=== PATIENT | female | born 1985 | race Caucasian/White ===

== ENCOUNTER 2017-04-20 12:53 | Emergency (ER) | payer BC ==
[2017-04-20] MEDS ORDERED: SODIUM CHLORIDE 0.9% 1,000 ML IV STA ×2 (13:29)
[2017-04-20] MEDS ORDERED: ONDANSETRON 4 MG/2 ML VIAL IVP STA ×2 (13:29→16:41)
[2017-04-20] MEDS ORDERED: SODIUM CHLORIDE 0.9% 500 ML IV STA (13:29)
--- NOTE | 2017-04-20 13:33 | ED ---
General Adult HPI - General Chief complaint: Nausea/Vomiting/Diarrhea Stated complaint: Vomiting Time Seen by Provider: 04/20/17 13:21 Source: patient, RN notes reviewed, old records reviewed Mode of arrival: ambulatory Limitations: no limitations - History of Present Illness Initial comments: This is a 31-year-old female to the ER for evaluation of dollop involvement with nausea vomiting. Severe. Patient has history of cholecystectomy. No other surgeries. No recent fevers or diarrhea. No blood in her vomit or stool. - Related Data Home Medications Medication Instructions Recorded Confirmed DULoxetine HCL [Cymbalta] 60 mg PO DAILY 04/20/17 04/20/17 Norgestimate-Ethinyl Estradiol 1 tab PO DAILY 04/20/17 04/20/17 [Sprintec 28 Day Tablet] Allergies Allergy/AdvReac Type Severity Reaction Status Date / Time No Known Allergies Allergy Verified 04/20/17 13:44 Review of Systems ROS Statement: Those systems with pertinent positive or pertinent negative responses have been documented in the HPI. ROS Other: All systems not noted in ROS Statement are negative. Past Medical History Past Medical History: No Reported History History of Any Multi-Drug Resistant Organisms: None Reported Past Surgical History: Cholecystectomy Past Psychological History: Anxiety Smoking Status: Never smoker Past Alcohol Use History: Occasional Past Drug Use History: None Reported General Exam Limitations: no limitations General appearance: alert, in no apparent distress, obese Head exam: Present: atraumatic, normocephalic, normal inspection Eye exam: Present: normal appearance, PERRL, EOMI. Absent: scleral icterus, conjunctival injection, periorbital swelling ENT exam: Present: normal exam, mucous membranes moist Neck exam: Present: normal inspection. Absent: tenderness, meningismus, lymphadenopathy Respiratory exam: Present: normal lung sounds bilaterally. Absent: respiratory distress, wheezes, rales, rhonchi, stridor Cardiovascular Exam: Present: regular rate, normal rhythm, normal heart sounds. Absent: systolic murmur, diastolic murmur, rubs, gallop, clicks GI/Abdominal exam: Present: soft, normal bowel sounds. Absent: distended, tenderness, guarding, rebound, rigid Extremities exam: Present: normal inspection, full ROM, normal capillary refill. Absent: tenderness, pedal edema, joint swelling, calf tenderness Back exam: Present: normal inspection Neurological exam: Present: alert, oriented X3, CN II-XII intact Psychiatric exam: Present: normal affect, normal mood Skin exam: Present: warm, dry, intact, normal color. Absent: rash Course Vital Signs 04/20/17 12:59 Temperature 96.9 F L Pulse Rate 124 H Respiratory 18 Rate Blood Pressure 138/87 O2 Sat by Pulse 98 Oximetry - Reevaluation(s) Reevaluation #1: 04/20/17 14:25 Patient's nausea improved but still feeling abdominal pain Medical Decision Making - Medical Decision Making 31 female here with nausea vomiting diarrhea abdominal pain. Symptoms of the sternal much improved. Labwork negative CT negative patient to be discharged - Lab Data Result diagrams: 04/20/17 13:28 04/20/17 13:28 Lab Results 04/20/17 04/20/17 04/20/17 Range/Units 13:28 13:28 13:28 WBC 9.5 (3.8-10.6) k/uL RBC 5.27 (3.80-5.40) m/uL Hgb 15.1 (11.4-16.0) gm/dL Hct 44.1 (34.0-46.0) % MCV 83.7 (80.0-100.0) fL MCH 28.7 (25.0-35.0) pg MCHC 34.2 (31.0-37.0) g/dL RDW 14.8 (11.5-15.5) % Plt Count 237 (150-450) k/uL Neutrophils % 93 % Lymphocytes % 4 % Monocytes % 2 % Eosinophils % 1 % Basophils % 0 % Neutrophils # 8.8 H (1.3-7.7) k/uL Lymphocytes # 0.4 L (1.0-4.8) k/uL Monocytes # 0.2 (0-1.0) k/uL Eosinophils # 0.1 (0-0.7) k/uL Basophils # 0.0 (0-0.2) k/uL Sodium 139 (137-145) mmol/L Potassium 4.8 (3.5-5.1) mmol/L Chloride 101 (98-107) mmol/L Carbon Dioxide 27 (22-30) mmol/L Anion Gap 11 mmol/L BUN 17 (7-17) mg/dL Creatinine 0.73 (0.52-1.04) mg/dL Est GFR (MDRD) Af Amer >60 (>60 ml/min/1.73 sqM) Est GFR (MDRD) Non-Af >60 (>60 ml/min/1.73 sqM) Glucose 140 H (74-99) mg/dL Calcium 9.8 (8.4-10.2) mg/dL Phosphorus 3.0 (2.5-4.5) mg/dL Magnesium 1.6 (1.6-2.3) mg/dL Total Bilirubin 0.5 (0.2-1.3) mg/dL AST 18 (14-36) U/L ALT 20 (9-52) U/L Alkaline Phosphatase 81 (38-126) U/L Total Protein 8.1 (6.3-8.2) g/dL Albumin 4.3 (3.5-5.0) g/dL Lipase 63 (23-300) U/L Urine Color Urine Appearance (Clear) Urine pH (5.0-8.0) Ur Specific [place] (1.001-1.035) Urine Protein (Negative) Urine Glucose (UA) (Negative) Urine Ketones (Negative) Urine Blood (Negative) Urine Nitrite (Negative) Urine Bilirubin (Negative) Urine Urobilinogen (<2.0) mg/dL Ur Leukocyte Esterase (Negative) Urine RBC (0-5) /hpf Urine WBC (0-5) /hpf Ur Squamous Epith Cells (0-4) /hpf Urine Bacteria (None) /hpf Urine Mucus (None) /hpf Urine HCG, Qual (Not Detectd) 04/20/17 04/20/17 Range/Units 14:00 14:00 WBC (3.8-10.6) k/uL RBC (3.80-5.40) m/uL Hgb (11.4-16.0) gm/dL Hct (34.0-46.0) % MCV (80.0-100.0) fL MCH (25.0-35.0) pg MCHC (31.0-37.0) g/dL RDW (11.5-15.5) % Plt Count (150-450) k/uL Neutrophils % % Lymphocytes % % Monocytes % % Eosinophils % % Basophils % % Neutrophils # (1.3-7.7) k/uL Lymphocytes # (1.0-4.8) k/uL Monocytes # (0-1.0) k/uL Eosinophils # (0-0.7) k/uL Basophils # (0-0.2) k/uL Sodium (137-145) mmol/L Potassium (3.5-5.1) mmol/L Chloride (98-107) mmol/L Carbon Dioxide (22-30) mmol/L Anion Gap mmol/L BUN (7-17) mg/dL Creatinine (0.52-1.04) mg/dL Est GFR (MDRD) Af Amer (>60 ml/min/1.73 sqM) Est GFR (MDRD) Non-Af (>60 ml/min/1.73 sqM) Glucose (74-99) mg/dL Calcium (8.4-10.2) mg/dL Phosphorus (2.5-4.5) mg/dL Magnesium (1.6-2.3) mg/dL Total Bilirubin (0.2-1.3) mg/dL AST (14-36) U/L ALT (9-52) U/L Alkaline Phosphatase (38-126) U/L Total Protein (6.3-8.2) g/dL Albumin (3.5-5.0) g/dL Lipase (23-300) U/L Urine Color Yellow Urine Appearance Cloudy H (Clear) Urine pH 6.0 (5.0-8.0) Ur Specific [place] 1.019 (1.001-1.035) Urine Protein Trace H (Negative) Urine Glucose (UA) Negative (Negative) Urine Ketones Negative (Negative) Urine Blood Negative (Negative) Urine Nitrite Negative (Negative) Urine Bilirubin Negative (Negative) Urine Urobilinogen <2.0 (<2.0) mg/dL Ur Leukocyte Esterase Trace H (Negative) Urine RBC 1 (0-5) /hpf Urine WBC 1 (0-5) /hpf Ur Squamous Epith Cells 4 (0-4) /hpf Urine Bacteria Rare H (None) /hpf Urine Mucus Occasional H (None) /hpf Urine HCG, Qual Not Detected (Not Detectd) - Radiology Data Radiology results: report reviewed (CT of pelvis is negative for acute disease) , image reviewed Disposition Clinical Impression: Food poisoning, Dehydration, Gastroenteritis Disposition: HOME SELF-CARE Condition: Good Instructions: Acute Nausea and Vomiting (ED), Acute Diarrhea (ED) Referrals: Sang Timmons MD [Primary Care Provider] - 1-2 days
[2017-04-20 13:45] LABS: Basophils % (A) 0 %; CH 28.3; Eosinophils # (A) 0.1 k/uL (0-0.7); Eosinophils % (A) 1 %; HCT 44.1 % (34.0-46.0); HDW 2.68; HGB 15.1 gm/dL (11.4-16.0); Luc # (Auto) 0.03; Luc % (Auto) 0; Lymphocytes # (A) 0.4 k/uL (1.0-4.8); Lymphocytes % (A) 4 %; MCH 28.7 pg (25.0-35.0); MCHC 34.2 g/dL (31.0-37.0); MCV 83.7 fL (80.0-100.0); Mean Platelet Volume 7.7; Monocytes # (A) 0.2 k/uL (0-1.0); Monocytes % (A) 2 %; Neutrophils # (A) 8.8 k/uL (1.3-7.7); Neutrophils % (A) 93 %; RBC 5.27 m/uL (3.80-5.40); RDW 14.8 % (11.5-15.5); WBC 9.5 k/uL (3.8-10.6); WBC (Perox) 9.43
[2017-04-20 13:57] LABS: ALT 20 U/L (9-52); AST 18 U/L (14-36); Alkaline Phosphatase 81 U/L (38-126); Anion Gap 11 mmol/L; Blood Urea Nitrogen 17 mg/dL (7-17); Calcium 9.8 mg/dL (8.4-10.2); Carbon Dioxide 27 mmol/L (22-30); Chloride 101 mmol/L (98-107); Glucose 140 mg/dL (74-99); Magnesium 1.6 mg/dL (1.6-2.3); Non-African American GFR(MDRD) >60 (>60 ml/min/1.73 sqM); Potassium 4.8 mmol/L (3.5-5.1); Sodium 139 mmol/L (137-145); Total Bilirubin 0.5 mg/dL (0.2-1.3); Total Protein 8.1 g/dL (6.3-8.2)
[2017-04-20 14:22] LABS: Appearance,Urine Cloudy (Clear); Bacteria,Urine Rare /hpf; Bilirubin,Urine Negative (Negative); Glucose,Urine (UA) Negative (Negative); Ketones,Urine Negative (Negative); Leukocyte Esterase,Urine Trace (Negative); Mucus,Urine Occasional /hpf; Nitrite,Urine Negative (Negative); Particle Count 4304; Protein,Urine Trace (Negative); RBC,Urine 1 /hpf (0-5); Specific Gravity,Urine 1.019 (1.001-1.035); Squamous Epithelial Cell,Urine 4 /hpf (0-4); UA Billing (MACRO vs. MICRO) MICRO; Urobilinogen,Urine <2.0 mg/dL (<2.0); WBC,Urine 1 /hpf (0-5)
[2017-04-20] MEDS ORDERED: MORPHINE SULFATE 2 MG/ML SYRINGE IVP STA ×2 (14:22→16:40)
[2017-04-20] MEDS ORDERED: RX INFO: IV CONTRAST WAS GIVEN 1 EACH MISC MISCELLANE PRN (14:22)
--- NOTE | 2017-04-20 15:48 | CT ---
EXAM: CT ABDOMEN PELVIS WITH CONTRAST INDICATION: Pain TECHNIQUE: Multiple, contiguous 5 mm axial cuts of the abdomen and pelvis are obtained from the lung bases to the ischial tuberosities. Intravenous contrast administered. Delayed images through the kidneys obtained. Sagittal and coronal reformatted images are available. This CT exam was performed using one or more of the following dose reduction techniques: automated exposure control, adjustment of the mA and/or kV according to patient size, and/or use of iterative reconstruction technique. CT DOSE: Total Exam volume computed tomography highest dose index (CTDIvol) = 17.4 mGy and total Dose Length Product (DLP) = 1384.2 mGY-cm COMPARISON: None FINDINGS: Lung bases are clear. Liver: liver is unremarkable. Spleen: spleen is unremarkable. Pancreas: pancreas is unremarkable. Gallbladder: Cholecystectomy. Adrenal glands: adrenal glands are unremarkable. Kidneys: kidneys are unremarkable. No urinary tract stones or hydronephrosis or perinephric inflammatory changes. GI tract: No bowel obstruction. No free fluid or free air or acute mesenteric inflammatory changes. Small hiatal hernia. Appendix: Appendix normal caliber. Urinary bladder: urinary bladder is unremarkable. Abdominal aorta: Abdominal aorta normal caliber. Retroperitoneum. No adenopathy. Osseous structures: No acute osseous abnormality. Uterus is present and unremarkable by CT exam. No adnexal lesions. IMPRESSION: 1. No acute intra-abdominal process identified. 2. No free fluid or free air or bowel obstruction. Appendix normal. 3. Small hiatal hernia. 4. Cholecystectomy.
[2017-04-20 16:52] VITALS: RESP 16
[2017-04-20] MEDS ORDERED: diphenhydrAMINE 50 MG/ML 1 ML VIAL IVP STA (17:30)
[2017-04-20] MEDS ORDERED: HYDROmorphone 0.5 MG/0.5 ML SYRINGE IVP STA (17:30)
[2017-04-20] MEDS ORDERED: METOCLOPRAMIDE 5 MG/ML 2 ML VIAL IVP STA (17:30)
[2017-04-20] MEDS ORDERED: PANTOPRAZOLE 40 MG/10 ML VIAL IVP STA (17:30)
[2017-04-20] MEDS ORDERED: HYDROmorphone 1 MG/ML 1 ML SYRINGE IVP STA (17:34)
[2017-04-20 18:16] VITALS: BP 122/71; PULSE 89; TEMP 98
== END 2017-04-20 18:15 | disposition home or self-care (01) ==
LOC: EC 12:53
DX: A05.9 Bacterial foodborne intoxication, unspecified (principal); E86.0 Dehydration; K52.9 Noninfective gastroenteritis and colitis, unspecified; F41.9 Anxiety disorder, unspecified; E66.9 Obesity, unspecified; Z68.38 Body mass index [BMI] 38.0-38.9, adult; Z90.49 Acquired absence of other specified parts of digestive tract; Z79.3 Long term (current) use of hormonal contraceptives; Z79.899 Other long term (current) drug therapy
CPT/HCPCS: 99284; 96374; 96375 ×5; 96376 ×2; 96361 ×4; 36415; 80053; 83690; 83735; 84100; 85025; 81001; 81025; 87086; 74177; J1200; J2765; J2405; J2270; J1170; Q9967; C9113

== ENCOUNTER 2019-05-16 15:31 | Emergency (ER) | payer BC ==
[2019-05-16 15:50] VITALS: TEMP 97.8
[2019-05-16] MEDS ORDERED: SODIUM CHLORIDE 0.9% 1,000 ML IV STA (16:16)
--- NOTE | 2019-05-16 16:18 | ED ---
Dizziness HPI - General Chief Complaint: Dizziness Stated Complaint: dizziness Time Seen by Provider: 05/16/19 15:53 Source: patient Mode of arrival: ambulatory Limitations: no limitations - History of Present Illness Initial Comments: Patient is a 33-year-old female presenting to emergency Department with complaints of dizziness for 3 days. Patient states 3 days ago she sat up from sleeping and had an episode where the room was spinning around her. Patient states she laid back down and rested for a few more minutes and the episode did pass. Patient states she got up slowly and she did not have any more episodes that day. Patient states since then she is experiencing lightheadedness and dizziness with certain motions. She states this is worse when she goes from a sitting to standing or when she turns her head too quickly. Patient denies history of vertigo or similar symptoms. Patient denies fever, chills, nausea, abdominal pain. Patient states she did have an episode of vomiting this morning. Patient states she just feels "off " and is concerned that the symptoms are lasting for this long. Denies at this time. Patient denies cough, chest pain, urinary complaints. Patient has no other complaints at this time. Upon arrival to the ER, patient was slightly tachycardia at 111, rest of vitals normal. - Related Data Home Medications Medication Instructions Recorded Confirmed DULoxetine HCL [Cymbalta] 60 mg PO DAILY 04/20/17 04/20/17 Norgestimate-Ethinyl Estradiol 1 tab PO DAILY 04/20/17 04/20/17 [Sprintec 28 Day Tablet] Previous Rx's Medication Instructions Recorded Prochlorperazine [Compazine] 10 mg PO Q8H #30 tab 04/20/17 Meclizine [Antivert] 25 mg PO BID PRN 15 Days #30 tab 05/16/19 Allergies Allergy/AdvReac Type Severity Reaction Status Date / Time No Known Allergies Allergy Verified 05/16/19 15:49 Review of Systems ROS Statement: Those systems with pertinent positive or pertinent negative responses have been documented in the HPI. ROS Other: All systems not noted in ROS Statement are negative. Past Medical History Past Medical History: No Reported History History of Any Multi-Drug Resistant Organisms: None Reported Past Surgical History: Cholecystectomy Past Psychological History: Anxiety Smoking Status: Never smoker Past Alcohol Use History: Occasional Past Drug Use History: None Reported General Exam - General Exam Comments Initial Comments: GENERAL: Well-appearing, well-nourished and in no acute distress. HEAD: Atraumatic, normocephalic. EYES: Pupils equal round and reactive to light, extraocular movements intact, sclera anicteric, conjunctiva are normal. ENT: TMs normal, nares patent, oropharynx clear without exudates. Moist mucous membranes. NECK: Normal range of motion, supple without lymphadenopathy or JVD. LUNGS: Breath sounds clear to auscultation bilaterally and equal. No wheezes rales or rhonchi. HEART: Regular rate and rhythm without murmurs, rubs or gallops. ABDOMEN: Soft, nontender, normoactive bowel sounds. No guarding, no rebound. No masses appreciated. : Deferred EXTREMITIES: Normal range of motion, no pitting or edema. No clubbing or cyanosis. NEUROLOGICAL: Cranial nerves II through XII grossly intact. Normal speech, normal gait. PSYCH: Normal mood, normal affect. SKIN: Warm, Dry, normal turgor, no rashes or lesions noted. Limitations: no limitations Course Vital Signs 05/16/19 05/16/19 15:49 18:49 Temperature 97.8 F Pulse Rate 115 H 97 Respiratory 18 16 Rate Blood Pressure 117/83 126/88 O2 Sat by Pulse 98 100 Oximetry EKG Findings - EKG Comments: EKG Findings:: Ventricular rate 85, W[place] interval 160, QTC 442. Normal sinus rhythm. No acute ST segment changes. Normal ECG. Medical Decision Making - Medical Decision Making Patient is a 33-year-old female presenting with vertigo-type symptoms for 3 days. Patient's exam is unremarkable. EKG is normal. Lab work is unremarkable. UA is normal and no signs of infection. HCG is negative. Pat ient was given fluids as well as meclizine and Benadryl. Patient reports improvement in her symptoms. I discussed these findings with the patient. I discussed that this could be vertigo. Patient will continue with the meclizine as needed and will follow-up with her PCP. Patient's vital signs are normal upon DC. Patient is agreeable with this plan of care. Return parameters were discussed with the patient and she verbalized understanding. Case discussed with Dr. Muniz. - Lab Data Result diagrams: 05/16/19 17:34 05/16/19 17:34 Lab Results 05/16/19 05/16/19 05/16/19 Range/Units 17:11 17:11 17:34 WBC 5.5 (3.8-10.6) k/uL RBC 4.82 (3.80-5.40) m/uL Hgb 14.1 (11.4-16.0) gm/dL Hct 41.5 (34.0-46.0) % MCV 86.1 (80.0-100.0) fL MCH 29.3 (25.0-35.0) pg MCHC 34.0 (31.0-37.0) g/dL RDW 13.3 (11.5-15.5) % Plt Count 177 (150-450) k/uL Neutrophils % 84 % Lymphocytes % 10 % Monocytes % 3 % Eosinophils % 1 % Basophils % 0 % Neutrophils # 4.7 (1.3-7.7) k/uL Lymphocytes # 0.6 L (1.0-4.8) k/uL Monocytes # 0.2 (0-1.0) k/uL Eosinophils # 0.1 (0-0.7) k/uL Basophils # 0.0 (0-0.2) k/uL Sodium (137-145) mmol/L Potassium (3.5-5.1) mmol/L Chloride (98-107) mmol/L Carbon Dioxide (22-30) mmol/L Anion Gap mmol/L BUN (7-17) mg/dL Creatinine (0.52-1.04) mg/dL Est GFR (CKD-EPI)AfAm (>60 ml/min/1.73 sqM) Est GFR (CKD-EPI)NonAf (>60 ml/min/1.73 sqM) Glucose (74-99) mg/dL Calcium (8.4-10.2) mg/dL Total Bilirubin (0.2-1.3) mg/dL AST (14-36) U/L ALT (4-34) U/L Alkaline Phosphatase (38-126) U/L Total Protein (6.3-8.2) g/dL Albumin (3.5-5.0) g/dL Urine Color Yellow Urine Appearance Cloudy H (Clear) Urine pH 6.0 (5.0-8.0) Ur Specific [place] 1.023 (1.001-1.035) Urine Protein Negative (Negative) Urine Glucose (UA) Negative (Negative) Urine Ketones Negative (Negative) Urine Blood Moderate H (Negative) Urine Nitrite Negative (Negative) Urine Bilirubin Negative (Negative) Urine Urobilinogen <2.0 (<2.0) mg/dL Ur Leukocyte Esterase Large H (Negative) Urine RBC 2 (0-5) /hpf Urine WBC 10 H (0-5) /hpf Ur Squamous Epith Cells 13 H (0-4) /hpf Urine Bacteria Occasional H (None) /hpf Urine Mucus Moderate H (None) /hpf Urine HCG, Qual Not Detected (Not Detectd) 05/16/19 Range/Units 17:34 WBC (3.8-10.6) k/uL RBC (3.80-5.40) m/uL Hgb (11.4-16.0) gm/dL Hct (34.0-46.0) % MCV (80.0-100.0) fL MCH (25.0-35.0) pg MCHC (31.0-37.0) g/dL RDW (11.5-15.5) % Plt Count (150-450) k/uL Neutrophils % % Lymphocytes % % Monocytes % % Eosinophils % % Basophils % % Neutrophils # (1.3-7.7) k/uL Lymphocytes # (1.0-4.8) k/uL Monocytes # (0-1.0) k/uL Eosinophils # (0-0.7) k/uL Basophils # (0-0.2) k/uL Sodium 136 L (137-145) mmol/L Potassium 4.1 (3.5-5.1) mmol/L Chloride 104 (98-107) mmol/L Carbon Dioxide 24 (22-30) mmol/L Anion Gap 8 mmol/L BUN 13 (7-17) mg/dL Creatinine 0.69 (0.52-1.04) mg/dL Est GFR (CKD-EPI)AfAm >90 (>60 ml/min/1.73 sqM) Est GFR (CKD-EPI)NonAf >90 (>60 ml/min/1.73 sqM) Glucose 101 H (74-99) mg/dL Calcium 8.9 (8.4-10.2) mg/dL Total Bilirubin 0.5 (0.2-1.3) mg/dL AST 20 (14-36) U/L ALT 11 (4-34) U/L Alkaline Phosphatase 74 (38-126) U/L Total Protein 7.0 (6.3-8.2) g/dL Albumin 3.8 (3.5-5.0) g/dL Urine Color Urine Appearance (Clear) Urine pH (5.0-8.0) Ur Specific [place] (1.001-1.035) Urine Protein (Negative) Urine Glucose (UA) (Negative) Urine Ketones (Negative) Urine Blood (Negative) Urine Nitrite (Negative) Urine Bilirubin (Negative) Urine Urobilinogen (<2.0) mg/dL Ur Leukocyte Esterase (Negative) Urine RBC (0-5) /hpf Urine WBC (0-5) /hpf Ur Squamous Epith Cells (0-4) /hpf Urine Bacteria (None) /hpf Urine Mucus (None) /hpf Urine HCG, Qual (Not Detectd) Disposition Clinical Impression: Vertigo, Light headedness Disposition: HOME SELF-CARE Condition: Stable Instructions (If sedation given, give patient instructions): Vertigo (ED) Additional Instructions: Please return to the Emergency Department if symptoms worsen or any other concerns. Follow-up with PCP as discussed, in 1- 3 days. Trial of meclizine for symptoms. Patient may also try Benadryl. Prescriptions: Meclizine [Antivert] 25 mg PO BID PRN 15 Days #30 tab PRN Reason: Vertigo Is patient prescribed a controlled substance at d/c from ED?: No Referrals: Sang Timmons MD [Primary Care Provider] - 1-2 days
[2019-05-16 17:52] LABS: Appearance,Urine Cloudy (Clear); Bacteria,Urine Occasional /hpf; Bilirubin,Urine Negative (Negative); Blood,Urine Moderate (Negative); Color,Urine Yellow; Glucose,Urine (UA) Negative (Negative); Ketones,Urine Negative (Negative); Leukocyte Esterase,Urine Large (Negative); Mucus,Urine Moderate /hpf; Nitrite,Urine Negative (Negative); Protein,Urine Negative (Negative); RBC,Urine 2 /hpf (0-5); Specific Gravity,Urine 1.023 (1.001-1.035); Squamous Epithelial Cell,Urine 13 /hpf (0-4); Urobilinogen,Urine <2.0 mg/dL (<2.0); WBC,Urine 10 /hpf (0-5)
[2019-05-16 17:57] LABS: Basophils % (A) 0 %; Eosinophils # (A) 0.1 k/uL (0-0.7); Eosinophils % (A) 1 %; HCT 41.5 % (34.0-46.0); HGB 14.1 gm/dL (11.4-16.0); Lymphocytes # (A) 0.6 k/uL (1.0-4.8); Lymphocytes % (A) 10 %; MCH 29.3 pg (25.0-35.0); MCV 86.1 fL (80.0-100.0); Mean Platelet Volume 7.8; Monocytes # (A) 0.2 k/uL (0-1.0); Monocytes % (A) 3 %; Neutrophils # (A) 4.7 k/uL (1.3-7.7); Neutrophils % (A) 84 %; Platelet Count 177 k/uL (150-450); RBC 4.82 m/uL (3.80-5.40); RDW 13.3 % (11.5-15.5); WBC 5.5 k/uL (3.8-10.6)
[2019-05-16 18:07] LABS: ALT 11 U/L (4-34); AST 20 U/L (14-36); African American GFR (CKD) >90 (>60 ml/min/1.73 sqM); Albumin 3.8 g/dL (3.5-5.0); Alkaline Phosphatase 74 U/L (38-126); Anion Gap 8 mmol/L; Blood Urea Nitrogen 13 mg/dL (7-17); Calcium 8.9 mg/dL (8.4-10.2); Carbon Dioxide 24 mmol/L (22-30); Chloride 104 mmol/L (98-107); Glucose 101 mg/dL (74-99); Non-African American GFR(CKD) >90 (>60 ml/min/1.73 sqM); Potassium 4.1 mmol/L (3.5-5.1); Sodium 136 mmol/L (137-145); Total Bilirubin 0.5 mg/dL (0.2-1.3)
[2019-05-16] MEDS ORDERED: MECLIZINE 12.5 MG TAB PO STA (18:17)
[2019-05-16] MEDS ORDERED: diphenhydrAMINE 50 MG/ML 1 ML VIAL IVP STA (18:17)
[2019-05-16 18:50] VITALS: BP 126/88; PULSE 97; RESP 16
== END 2019-05-16 18:54 | disposition home or self-care (01) ==
LOC: EC 15:31
DX: R42 Dizziness and giddiness (principal); F41.9 Anxiety disorder, unspecified; Z79.3 Long term (current) use of hormonal contraceptives; Z79.899 Other long term (current) drug therapy
CPT/HCPCS: 36415; 93005; 80053; 85025; 81001; 81025; 99284; 96374; 96361 ×2; J1200

== ENCOUNTER 2020-01-16 10:27 | Emergency (ER) | payer BC ==
[2020-01-16 10:34] VITALS: RESP 18
[2020-01-16] MEDS ORDERED: DEXAMETHASONE SOD PHOSPHATE 10 MG/ML 1 ML VIAL PO STA (10:47)
--- NOTE | 2020-01-16 10:50 | ED ---
ENT HPI - General Chief complaint: ENT Stated complaint: sorethroat Time Seen by Provider: 01/16/20 10:36 Source: patient, RN notes reviewed Mode of arrival: ambulatory Limitations: no limitations - History of Present Illness Initial comments: 34-year-old female presents emergency Department with chief complaint of sore throat, sinus congestion patient states symptoms have been going on for last 4 days. Patient states is getting worse. Patient has tried everything [id number] no relief no fevers or chills no bodyaches no loss of smell. Patient denies any significant past history no sick contacts. - Related Data Home Medications Medication Instructions Recorded Confirmed DULoxetine HCL [Cymbalta] 60 mg PO DAILY 04/20/17 04/20/17 Norgestimate-Ethinyl Estradiol 1 tab PO DAILY 04/20/17 04/20/17 [Sprintec 28 Day Tablet] Previous Rx's Medication Instructions Recorded Prochlorperazine [Compazine] 10 mg PO Q8H #30 tab 04/20/17 Meclizine [Antivert] 25 mg PO BID PRN 15 Days #30 tab 05/16/19 Azithromycin [Zithromax Z-pack] 0 mg PO DIRECTED #1 pack 01/16/20 Allergies Allergy/AdvReac Type Severity Reaction Status Date / Time No Known Allergies Allergy Verified 01/16/20 10:29 Review of Systems ROS Statement: Those systems with pertinent positive or pertinent negative responses have been documented in the HPI. ROS Other: All systems not noted in ROS Statement are negative. Past Medical History Past Medical History: No Reported History History of Any Multi-Drug Resistant Organisms: None Reported Past Surgical History: Cholecystectomy Past Psychological History: Anxiety Smoking Status: Never smoker Past Alcohol Use History: Occasional Past Drug Use History: None Reported General Exam Limitations: no limitations General appearance: alert, in no apparent distress Head exam: Present: atraumatic, normocephalic, normal inspection Eye exam: Present: normal appearance, PERRL, EOMI. Absent: scleral icterus, conjunctival injection, periorbital swelling ENT exam: Present: mucous membranes moist, TM's normal bilaterally, normal external ear exam. Absent: normal oropharynx (Postnasal drainage, erythema no edematous tonsils no exudates) Neck exam: Present: normal inspection, full ROM, lymphadenopathy. Absent: tenderness, meningismus Respiratory exam: Present: normal lung sounds bilaterally. Absent: respiratory distress, wheezes, rales, rhonchi, stridor Cardiovascular Exam: Present: regular rate, normal rhythm, normal heart sounds. Absent: systolic murmur, diastolic murmur, rubs, gallop, clicks Course Vital Signs 01/16/20 10:30 Temperature 98.3 F Pulse Rate 114 H Respiratory 18 Rate Blood Pressure 118/77 O2 Sat by Pulse 96 Oximetry Medical Decision Making - Medical Decision Making Patient's will be treated for acute pharyngitis, laryngitis with possible underlying sinusitis. Patient had recently ENT evaluation Disposition Clinical Impression: Acute pharyngitis, Acute laryngitis, Sinusitis Disposition: HOME SELF-CARE Condition: Stable Instructions (If sedation given, give patient instructions): Pharyngitis (ED) Additional Instructions: Please return to the Emergency Department if symptoms worsen or any other concerns. Prescriptions: Azithromycin [Zithromax Z-pack] 0 mg PO DIRECTED #1 pack Is patient prescribed a controlled substance at d/c from ED?: No Referrals: Nonstaff,Physician [Primary Care Provider] - 1-2 days Time of Disposition: 10:50
[2020-01-16 11:31] VITALS: BP 120/70; PULSE 92; TEMP 98
== END 2020-01-16 11:29 | disposition home or self-care (01) ==
LOC: EC 10:27
DX: J02.9 Acute pharyngitis, unspecified (principal); J04.0 Acute laryngitis; J32.9 Chronic sinusitis, unspecified; F41.9 Anxiety disorder, unspecified; Z79.899 Other long term (current) drug therapy; Z79.3 Long term (current) use of hormonal contraceptives
CPT/HCPCS: 99282; J1100

== ENCOUNTER → 2020-01-21 | Outpatient (CLI) | payer BC ==
--- NOTE | 2020-01-21 15:19 | CT ---
EXAMINATION TYPE: CT sinus wo con DATE OF EXAM: 01/21/2020 COMPARISON: None HISTORY: Acute sinusitis. Pt c/o drainage, maxillary, frontal pain. Is on third round of antibiotics CT DLP: 465.[address] of the paranasal sinuses was performed in the axial and coronal planes. Bone and soft tissue settings are submitted. The paranasal sinuses demonstrate normal aeration and development. Moderate mucosal thickening involving the ethmoid air cells and maxillary sinuses. Minimal mucosal th ickening of the frontal sinus. Near complete opacification the sphenoid sinus. The osteal meatal units are patent bilaterally. The nasal septum is midline. No bony destructive changes are seen within the field of view. IMPRESSION: Pansinusitis noted.
== END | disposition home or self-care (01) ==
LOC: RADCTMAIN 14:28
PROVIDERS: ATTEND Otolaryngology Otolaryngology/Facial Plastic Surgery
DX: J32.4 Chronic pansinusitis (principal)
CPT/HCPCS: 70486

== ENCOUNTER → 2020-09-22 | Outpatient (CLI) | payer BC ==
--- NOTE | 2020-09-23 10:39 | MM ---
Reason for exam: screening (asymptomatic). Baseline mammogram. History: Family history of breast cancer in mother at age 40 and breast cancer in sister at age 27. Taking hormonal contraceptives beginning at age 16. Physical Findings: Nurse did not find any significant physical abnormalities on exam. MG 3D Screening Mammo W/Cad Bilateral CC, MLO, and XCCL view(s) were taken. The breast tissue is heterogeneously dense. This may lower the sensitivity of mammography. Finding: There is subtle architectural distortion in the upper outer quadrant, posterior position of the left breast. Nodularity right axilla. These results were verbally communicated with the patient and result sheet given to the patient on 09/22/20. ASSESSMENT: Incomplete: need additional imaging evaluation, BI-RAD 0 RECOMMENDATION: Ultrasound of both breasts.
--- NOTE | 2020-09-23 10:41 | USB ---
Reason for exam: additional evaluation requested from abnormal screening. History: Family history of breast cancer in mother at age 40 and breast cancer in sister at age 27. Taking hormonal contraceptives beginning at age 16. US Breast Workup Limited AL Right limited breast ultrasound including focal area of concern, retroareolar and axilla demonstrates a 0.7cm oval lymph node at the axilla tail. Left limited breast ultrasound including focal area of concern, retroareolar and axilla demonstrates a 0.4 x 0.2 x 0.2cm oval, cystic lesion at 2 o'clock and a 0.7cm oval lymph node at the axilla tail. Benign lymph nodes. These results were verbally communicated with the patient and result sheet given to the patient on 09/22/20. ASSESSMENT: Benign, BI-RAD 2 RECOMMENDATION: Routine screening mammogram of both breasts at age 40.
== END | disposition home or self-care (01) ==
LOC: RADMAMWWP 09:19
PROVIDERS: ATTEND Obstetrics & Gynecology
DX: Z12.31 Encounter for screening mammogram for malignant neoplasm of breast (principal); N60.02 Solitary cyst of left breast; R92.8 Other abnormal and inconclusive findings on diagnostic imaging of breast; Z80.3 Family history of malignant neoplasm of breast
CPT/HCPCS: 77063; 77067

== ENCOUNTER → 2022-10-18 | Outpatient (CLI) | payer BC ==
[2022-10-19 02:19] LABS: HCT 39.6 % (37.2-46.3); HGB 12.5 g/dL (12.0-15.0); MCH 28.6 pg (27.0-32.0); MCHC 31.6 g/dL (32.0-37.0); MCV 90.6 fL (80.0-97.0); Mean Platelet Volume 10.9 fL (9.5-12.2); NRBC Per 100 WBC 0 /100 WBCS (0.0-0.0); Platelet Count 278 X 10*3/uL (140-440); RBC 4.37 X 10*6/uL (4.10-5.20); RDW 13.7 % (11.5-14.5); WBC 5.67 X 10*3/uL (4.50-10.00)
[2022-10-19 03:01] LABS: ALT 12 U/L (8-44); AST 13 U/L (13-35); African American GFR (CKD) 128.9 (60.0-200.0); Albumin 3.9 g/dL (3.8-4.9); Albumin/Globulin Ratio 1.46 (1.60-3.17); Alkaline Phosphatase 71 U/L (41-126); BUN/Creat Ratio 21.01 Ratio (12.00-20.00); Blood Urea Nitrogen 14.5 mg/dL (9.0-27.0); Calcium 9.5 mg/dL (8.7-10.3); Carbon Dioxide 24.2 mmol/L (20.0-27.5); Chloride 102 mmol/L (96-109); Chol/HDL Ratio 3.89 Ratio; Globulin 2.7 g/dL (1.6-3.3); Glucose 114 mg/dL (70-110); LDL Cholesterol,Calculated 118.7 mg/dL (0.0-131.0); Non-African American GFR(CKD) 111.2 (60.0-200.0); Potassium 4.4 mmol/L (3.5-5.5); Sodium 137 mmol/L (135-145); Total Bilirubin <0.15 mg/dL (0.30-1.20); Total Protein 6.5 g/dL (6.2-8.2)
== END | disposition home or self-care (01) ==
LOC: LABWHC1 06:51
PROVIDERS: ATTEND Family Medicine
DX: Z00.00 Encounter for general adult medical examination without abnormal findings (principal)
CPT/HCPCS: 36415; 80053; 80061; 84443; 85027

== ENCOUNTER → 2023-09-25 | Outpatient (CLI) | payer BC ==
--- NOTE | 2023-09-25 14:35 | MM ---
Reason for Exam: Screening (asymptomatic). Last mammogram was performed 3 year(s) and 0 month(s) ago. Patient History: Menarche at age 13. First Full-Term at age 24. Premenopausal. Currently using Hormonal Contraceptives, starting at age 16. Sister had breast cancer, age 27. Mother had breast cancer, age 40. Last menstrual period: 09/02/2023 Risk Values: Kristina 5 year model risk: 1.9%. NCI Lifetime model risk: 35.2%. Prior Study Comparison: 09/22/2020 Bilateral Screening Mammogram, [facility]. Tissue Density: The breasts are heterogeneously dense, which may obscure small masses. Findings: Analyzed By CAD. Unchanged intramammary lymph node lateral right breast. Scattered areas of asymmetric density remain unchanged. No significant change from prior exams. Overall Assessment: Benign, BI-RAD 2 Management: Screening Mammogram of both breasts in 1 year. SEE NOTE BELOW IN REGARDS TO PATIENT'S INCREASED LIFETIME RISK SCORE. Patient should continue monthly self-breast exams. A clinical breast exam by your physician is recommended on an annual basis. This exam should not preclude additional follow-up of suspicious palpable abnormalities. Note on Kristina scores and lifetime risk: 1. A Kristina score greater than 3% is considered moderate risk. If this is the case, consider specialist referral to assess eligibility for a risk reducing agent. 2. If overall lifetime risk for the development of breast cancer is 20% or higher, the patient may qualify for future screening with alternating mammogram and breast MRI. Electronically signed and approved by: Chrissie Spence M.D. Radiologist
== END | disposition home or self-care (01) ==
LOC: RADMAMWWP 12:48
PROVIDERS: ATTEND Obstetrics & Gynecology
DX: Z12.31 Encounter for screening mammogram for malignant neoplasm of breast (principal); Z80.3 Family history of malignant neoplasm of breast
CPT/HCPCS: 77063; 77067

== ENCOUNTER → 2024-02-03 | Outpatient (CLI) | payer BC ==
[2024-02-03 10:30] LABS: Basophils # (A) 0.04 X 10*3/uL (0.00-0.10); Basophils % (A) 0.7 %; Eosinophils # (A) 0.04 X 10*3/uL (0.04-0.35); Eosinophils % (A) 0.7 %; HCT 39.1 % (37.2-46.3); Lymphocytes # (A) 2.13 X 10*3/uL (0.90-5.00); Lymphocytes % (A) 35.5 %; MCH 28.8 pg (27.0-32.0); MCHC 33.2 g/dL (32.0-37.0); MCV 86.7 FL (80.0-97.0); Mean Platelet Volume 10.9 FL (9.5-12.2); Monocytes # (A) 0.39 X 10*3/uL (0.20-1.00); Monocytes % (A) 6.5 %; NRBC Per 100 WBC 0 X 10*3/uL (0.00-0.01); Neutrophils # (A) 3.39 X 10*3/uL (1.80-7.70); Neutrophils % (A) 56.4 %; Platelet Count 286 X 10*3/uL (140-440); RBC 4.51 X 10*6/uL (4.10-5.20); RDW 13.2 % (11.5-14.5)
[2024-02-03 10:41] LABS: ALT 12 U/L (8-44); AST 12 U/L (13-35); Albumin 4.2 g/dL (3.8-4.9); Albumin/Globulin Ratio 1.45 Ratio (1.60-3.17); Alkaline Phosphatase 79 U/L (41-126); BUN/Creat Ratio 18.75 Ratio (12.00-20.00); Calcium 9.5 mg/dL (8.7-10.3); Carbon Dioxide 24.4 mmol/L (21.6-31.8); Chloride 100 mmol/L (96-109); Chol/HDL Ratio 4.56 Ratio; Globulin 2.9 g/dL (1.6-3.3); Glucose 131 mg/dL (70-110); LDL Cholesterol,Calculated 138.6 mg/dL (0.0-131.0); Potassium 4.3 mmol/L (3.5-5.5); Sodium 137 mmol/L (135-145); Total Bilirubin 0.2 mg/dL (0.3-1.2); Total Protein 7.1 g/dL (6.2-8.2)
== END | disposition home or self-care (01) ==
LOC: LABWHC1 07:52
PROVIDERS: ATTEND Family Medicine
DX: Z00.00 Encounter for general adult medical examination without abnormal findings
CPT/HCPCS: 36415; 80053; 80061; 83036; 84443; 85025

== ENCOUNTER → 2024-05-27 | Outpatient (CLI) | payer BC ==
[2024-05-27 11:02] LABS: HCT 39.8 % (37.2-46.3); HGB 12.9 g/dL (12.0-15.0); MCH 27.8 pg (27.0-32.0); MCHC 32.4 g/dL (32.0-37.0); MCV 85.8 FL (80.0-97.0); Mean Platelet Volume 10.8 FL (9.5-12.2); NRBC Per 100 WBC 0 X 10*3/uL (0.00-0.01); Platelet Count 322 X 10*3/uL (140-440); RBC 4.64 X 10*6/uL (4.10-5.20); RDW 13.2 % (11.5-14.5); WBC 8.71 X 10*3/uL (4.50-10.00)
[2024-05-27 11:03] LABS: Basophils # (A) 0.05 X 10*3/uL (0.00-0.10); Basophils % (A) 0.6 %; Eosinophils # (A) 0.07 X 10*3/uL (0.04-0.35); Eosinophils % (A) 0.8 %; Lymphocytes # (A) 2.67 X 10*3/uL (0.90-5.00); Lymphocytes % (A) 30.7 %; Monocytes # (A) 0.48 X 10*3/uL (0.20-1.00); Monocytes % (A) 5.5 %; Neutrophils # (A) 5.41 X 10*3/uL (1.80-7.70); Neutrophils % (A) 62.1 %
[2024-05-27 11:28] LABS: ALT 11 U/L (8-44); AST 16 U/L (13-35); Albumin/Globulin Ratio 1.33 Ratio (1.60-3.17); Alkaline Phosphatase 79 U/L (41-126); BUN/Creat Ratio 16.75 Ratio (12.00-20.00); Blood Urea Nitrogen 13.4 mg/dL (9.0-27.0); Calcium 9.6 mg/dL (8.7-10.3); Carbon Dioxide 22.5 mmol/L (21.6-31.8); Chloride 101 mmol/L (96-109); Chol/HDL Ratio 4.51 Ratio; Glucose 123 mg/dL (70-110); LDL Cholesterol,Calculated 111.9 mg/dL (0.0-131.0); Potassium 4.2 mmol/L (3.5-5.5); Sodium 137 mmol/L (135-145); Total Bilirubin 0.2 mg/dL (0.3-1.2)
== END | disposition home or self-care (01) ==
LOC: LABWHC1 06:52
PROVIDERS: ATTEND Family Medicine
DX: I10 Essential (primary) hypertension (principal); E78.2 Mixed hyperlipidemia; E55.9 Vitamin D deficiency, unspecified; R53.83 Other fatigue; R79.9 Abnormal finding of blood chemistry, unspecified
CPT/HCPCS: 36415; 80053; 80061; 82043; 82306; 82570; 82607; 82746; 83036; 85025

== ENCOUNTER → 2024-08-24 | Outpatient (CLI) | payer BC ==
[2024-08-24 10:21] LABS: Basophils # (A) 0.06 X 10*3/uL (0.00-0.10); Basophils % (A) 0.7 %; Eosinophils # (A) 0.08 X 10*3/uL (0.04-0.35); HCT 37.7 % (37.2-46.3); HGB 12.5 g/dL (12.0-15.0); Lymphocytes # (A) 1.97 X 10*3/uL (0.90-5.00); Lymphocytes % (A) 23.9 %; MCH 28.1 pg (27.0-32.0); MCHC 33.2 g/dL (32.0-37.0); MCV 84.7 FL (80.0-97.0); Mean Platelet Volume 10.6 FL (9.5-12.2); Monocytes # (A) 0.47 X 10*3/uL (0.20-1.00); Monocytes % (A) 5.7 %; NRBC Per 100 WBC 0 X 10*3/uL (0.00-0.01); Neutrophils # (A) 5.63 X 10*3/uL (1.80-7.70); Neutrophils % (A) 68.3 %; Platelet Count 318 X 10*3/uL (140-440); RBC 4.45 X 10*6/uL (4.10-5.20); RDW 13.6 % (11.5-14.5); WBC 8.24 X 10*3/uL (4.50-10.00)
[2024-08-24 10:52] LABS: ALT 14 U/L (8-44); AST 17 U/L (13-35); Albumin 3.8 g/dL (3.8-4.9); Albumin/Globulin Ratio 1.31 Ratio (1.60-3.17); Alkaline Phosphatase 86 U/L (41-126); BUN/Creat Ratio 15.88 Ratio (12.00-20.00); Blood Urea Nitrogen 12.7 mg/dL (9.0-27.0); Calcium 9.4 mg/dL (8.7-10.3); Carbon Dioxide 23.3 mmol/L (21.6-31.8); Chloride 104 mmol/L (96-109); Chol/HDL Ratio 3.84 Ratio; Globulin 2.9 g/dL (1.6-3.3); Glucose 135 mg/dL (70-110); LDL Cholesterol,Calculated 99.8 mg/dL (0.0-131.0); Potassium 4.1 mmol/L (3.5-5.5); Sodium 138 mmol/L (135-145); Total Bilirubin <0.2 mg/dL (0.3-1.2); Total Protein 6.7 g/dL (6.2-8.2)
== END | disposition home or self-care (01) ==
LOC: LABWHC1 07:12
PROVIDERS: ATTEND Family Medicine
DX: I10 Essential (primary) hypertension (principal); E78.2 Mixed hyperlipidemia; E55.9 Vitamin D deficiency, unspecified; R53.83 Other fatigue
CPT/HCPCS: 36415; 80053; 80061; 82306; 82607; 82746; 83036; 85025

== ENCOUNTER → 2024-11-25 | Outpatient (CLI) | payer BC ==
[2024-11-25 10:29] LABS: Basophils # (A) 0.05 X 10*3/uL (0.00-0.10); Basophils % (A) 0.8 %; Eosinophils # (A) 0.07 X 10*3/uL (0.04-0.35); Eosinophils % (A) 1.1 %; HCT 39.2 % (37.2-46.3); HGB 12.9 g/dL (12.0-15.0); Immature Grans, Automated 0.20 %; Lymphocytes # (A) 2.61 X 10*3/uL (0.90-5.00); Lymphocytes % (A) 40.0 %; MCH 27.9 pg (27.0-32.0); MCHC 32.9 g/dL (32.0-37.0); MCV 84.8 FL (80.0-97.0); Monocytes # (A) 0.47 X 10*3/uL (0.20-1.00); Monocytes % (A) 7.2 %; NRBC Per 100 WBC 0 X 10*3/uL (0.00-0.01); Neutrophils # (A) 3.31 X 10*3/uL (1.80-7.70); Neutrophils % (A) 50.7 %; Platelet Count 317 X 10*3/uL (140-440); RBC 4.62 X 10*6/uL (4.10-5.20); RDW 14.1 % (11.5-14.5); WBC 6.52 X 10*3/uL (4.50-10.00)
[2024-11-25 10:48] LABS: ALT 11 U/L (8-44); AST 15 U/L (13-35); Albumin 4.0 g/dL (3.8-4.9); Albumin/Globulin Ratio 1.43 Ratio (1.60-3.17); Alkaline Phosphatase 82 U/L (41-126); Anion Gap 10.90 mmol/L (4.00-12.00); BUN/Creat Ratio 15.00 Ratio (12.00-20.00); Blood Urea Nitrogen 13.5 mg/dL (9.0-27.0); Calcium 9.4 mg/dL (8.7-10.3); Carbon Dioxide 22.1 mmol/L (21.6-31.8); Chloride 104 mmol/L (96-109); Cholesterol 219.00 mg/dL (0.00-200.00); Globulin 2.8 g/dL (1.6-3.3); Glucose 121 mg/dL (70-110); HDL Cholesterol 45.40 mg/dL (40.00-60.00); LDL Cholesterol,Calculated 112.2 mg/dL (0.0-131.0); Potassium 4.1 mmol/L (3.5-5.5); Sodium 137 mmol/L (135-145); Total Protein 6.8 g/dL (6.2-8.2); Triglycerides 307.00 mg/dL (0.00-149.00); VLDL Calculation 61.40 mg/dL (5.00-40.00)
== END | disposition home or self-care (01) ==
LOC: LABWHC1 07:05
PROVIDERS: ATTEND Family Medicine
DX: Z00.00 Encounter for general adult medical examination without abnormal findings (principal); I10 Essential (primary) hypertension; E78.2 Mixed hyperlipidemia; R79.9 Abnormal finding of blood chemistry, unspecified
CPT/HCPCS: 36415; 80053; 80061; 83036; 85025